=== PATIENT | female | born 1980 | race Two or more races ===

== ENCOUNTER 2018-07-27 06:26 | Inpatient (IN) ==
[2018-07-27] MEDS ORDERED: D5LR 1L W PITOCIN 10 UNITS/L 10 UNITS/1,000 ML BAG IV ONE ×2 (06:40→17:17)
[2018-07-27] MEDS ORDERED: PITOCIN ONE (06:40)
[2018-07-27] MEDS: LR 1000 ML IV 1,000 ML IV SCH ×2 (06:40→17:50)
[2018-07-27] MEDS ORDERED: LR 1000 ML IV 1,000 ML IV ONE ×2 (06:40→17:38)
[2018-07-27] MEDS ORDERED: D5 1/2 NS 1L W PITOCIN 20 UNITS/L 20 UNITS/1,000 ML BAG IV ONE (06:41)
[2018-07-27] MEDS ORDERED: PITOCIN IVP ONE (06:49)
[2018-07-27] MEDS: D5LR 1L W PITOCIN 10 UNITS/L 10 UNITS/1,000 ML BAG IV PRN ×2 (07:00→17:30)
[2018-07-27 07:21] LABS: BASOPHILS % (AUTO) 0.6 % (0.2-1.0); EOSINOPHILS # (AUTO) 0.1 x10^3/uL (0.0-0.2); EOSINOPHILS % (AUTO) 2.1 % (0.9-2.9); HEMATOCRIT 35.2 % (36.0-47.0); LYMPHOCYTES # (AUTO) 1.4 X10^3/uL (1.3-2.9); LYMPHOCYTES % (AUTO) 27.7 % (21.0-51.0); MEAN CORPUSCULAR HEMOGLOBIN 29.9 pg (27.0-34.0); MEAN CORPUSCULAR HGB CONC 34.2 g/dL (33.0-35.0); MEAN CORPUSCULAR VOLUME 87.3 fL (80.0-100.0); MONOCYTES # (AUTO) 0.3 x10^3/uL (0.3-0.8); MONOCYTES % (AUTO) 6.8 % (0.0-13.0); NEUTROPHILS # (AUTO) 3.1 x10^3/uL (2.2-4.8); NEUTROPHILS % (AUTO) 62.8 % (42.0-75.0); PLATELET COUNT 177 X10^3/uL (150.0-450.0); RED BLOOD COUNT 4.03 X10^6/uL (3.5-5.4); RED CELL DISTRIBUTION WIDTH 16.9 % (11.6-16.5); WHITE BLOOD COUNT 4.9 X10^3/uL (3.6-10.0)
[2018-07-27 07:27] LABS: BLOOD UREA NITROGEN 7 mg/dL (7-18); CALCIUM 8.6 mg/dL (8.5-10.1); CARBON DIOXIDE 23.1 mmol/L (21-32); CHLORIDE 104 mmol/L (98-107); CREATININE 0.61 mg/dL (0.55-1.02); SODIUM 137 mmol/L (136-145); eGFR NON BLACK RACES > 60 (>60)
[2018-07-27 08:05] LABS: BILIRUBIN,URINE NEGATIVE (NEGATIVE); BLOOD/HEMOGLOBIN,URINE NEGATIVE (NEGATIVE); GLUCOSE, URINE NEGATIVE (NEGATIVE); KETONES,URINE NEGATIVE (NEGATIVE); LEUKOCYTE ESTERASE ,URINE 3+ (NEGATIVE); NITRITES,URINE NEGATIVE (NEGATIVE); PROTEIN,URINE NEGATIVE (NEGATIVE); UROBILINOGEN,URINE NORMAL (NORMAL)
[2018-07-27 08:40] LABS: APPEARANCE,URINE SLIGHTLY HAZY (CLEAR); BACTERIA,URINE TRACE /HPF (NEGATIVE); COLOR,URINE YELLOW (YELLOW); RBC,URINE 0-2 /HPF (NONE SEEN); SQUAMOUS EPITHELIAL CELL,UR MANY /HPF (NEGATIVE)
[2018-07-27] MEDS ORDERED: NUBAIN INJ 10 ONE (16:11)
[2018-07-27] MEDS: NUBAIN INJ 200 MG VIAL MULTIDOSE IVP PRN ×2 (16:12→18:34)
[2018-07-27] MEDS ORDERED: XYLOCAINE 1 % (PLAIN) ONE (19:20)
[2018-07-27] MEDS ORDERED: AMBIEN PO PRN (21:17)
[2018-07-27] MEDS ORDERED: DERMOPLAST SPRAY TOP PRN (21:17)
[2018-07-27] MEDS ORDERED: ADACEL or BOOSTRIX TDaP VACCINE IM ONE (21:17)
[2018-07-27] MEDS ORDERED: MILK OF MAGNESIA PO PRN (21:17)
[2018-07-27] MEDS: MOTRIN TAB 800 MG PO PRN (22:34)
[2018-07-27] MEDS: D5 1/2 NS 1000 ML 1,000 ML with PITOCIN 20 UNITS IV SCH ×2 (22:41)
[2018-07-27] MEDS ORDERED: ZOFRAN INJ 4 MG VIAL IVP PRN (23:45)
[2018-07-27] MEDS ORDERED: ZOFRAN INJ 4 MG VIAL ONE (23:46)
[2018-07-28 05:09] LABS: HEMATOCRIT 31.2 % (36.0-47.0); HEMOGLOBIN 10.6 g/dL (12.0-16.0)
[2018-07-28] MEDS: D5 1/2 NS 1000 ML 1,000 ML with PITOCIN 20 UNITS IV SCH ×6 (06:01→21:29)
[2018-07-28] MEDS: MOTRIN TAB 800 MG PO PRN ×2 (06:40→17:56)
[2018-07-28] MEDS: ZANTAC PO SCH ×2 (08:01→21:24)
[2018-07-28] MEDS: PRENATAL PLUS PO SCH (08:01)
[2018-07-28] MEDS ORDERED: ADACEL or BOOSTRIX TDaP VACCINE IM ONE (09:00)
[2018-07-28] MEDS: MYLICON TAB 80 MG CHEW PO PRN (21:24)
[2018-07-29] MEDS: D5 1/2 NS 1000 ML 1,000 ML with PITOCIN 20 UNITS IV SCH ×2 (05:23)
[2018-07-29] MEDS: MYLICON TAB 80 MG CHEW PO PRN (05:57)
[2018-07-29] MEDS: MOTRIN TAB 800 MG PO PRN (05:57)
[2018-07-29] MEDS: PRENATAL PLUS PO SCH (08:38)
[2018-07-29] MEDS: ZANTAC PO SCH (08:39)
[2018-07-29 08:46] VITALS: BP 91/55
== END 2018-07-29 10:40 | disposition home or self-care (01) | DRG 775 ==
LOC: LD 06:26 → MED/SURG 20:50
PROVIDERS: ADMIT Obstetrics & Gynecology Obstetrics; ATTEND Obstetrics & Gynecology Obstetrics
DX: O70.1 Second degree perineal laceration during delivery; Z37.0 Single live birth; Z3A.39 39 weeks gestation of pregnancy; Z23 Encounter for immunization
CPT/HCPCS: 36415; 59409; 80048; 81001; 85014; 85018; 85025; 86592; 86850; 86900; 86901; 87086; 90715; A4216; A4222; S0197; J2300; J2405; J2590; J7120; S5010